=== PATIENT | female | born 1995 | race African-American/Black ===

== ENCOUNTER 2019-10-18 11:27 | Emergency (ER) | payer MEDICAID ==
[~2019-10-18] VITALS: Ht 165.1 cm; Wt 85.7 kg
[2019-10-18 12:59] LABS: Urine Bacteria NONE SEEN /hpf (None Seen); Urine Blood 1+ /uL (Negative); Urine Specific Gravity 1.026 (1.001-1.035); Urine WBC 4 /hpf (0 - 5)
[2019-10-18 13:40] LABS: Basophils # (auto) 0 uL; Basophils % (auto) 0.2 % (0.0-2.0); Eosinophils # (auto) 0.3 uL; Eosinophils % (auto) 2.1 % (0.0-7.0); Hematocrit 46.6 % (36.0-46.0); Hemoglobin 15.5 g/dL (12.2-16.2); Lymphocytes # (auto) 2.6 uL; Lymphocytes % (auto) 18.8 % (10.0-50.0); Mean Corpuscular Hemoglobin 32.5 pg (28.0-32.0); Mean Corpuscular Hgb Conc. 33.2 g/dL (32.0-36.0); Mean Corpuscular Volume 98.1 fL (80.0-100.0); Monocytes # (auto) 0.9 uL; Monocytes % (auto) 6.3 % (0.0-12.0); Neutrophils # (auto) 9.9 uL; Neutrophils % (auto) 72.6 % (37.0-80.0); Platelet Count (auto) 212 10^3/uL (140-450); Red Blood Cells 4.75 10^6/uL (4.0-5.20); Red Cell Distribution Width 13.2 % (11.8-14.3); White Blood Cell 13.7 10^3/uL (4.4-10.8)
[2019-10-18 14:02] LABS: Potassium 4.1 mmol/L (3.5-5.1)
[2019-10-18 14:08] LABS: Bilirubin, Total 0.3 mg/dL (0.2-1.0); Total Protein 7.5 g/dL (6.4-8.2)
[2019-10-18 15:32] VITALS: BP 116/69
== END 2019-10-18 15:31 | disposition home or self-care (01) ==
LOC: ER 11:27
DX: N39.0 Urinary tract infection, site not specified (principal); R10.2 Pelvic and perineal pain
CPT/HCPCS: 36415; 76856; 80053; 81001; 84702; 85025

== ENCOUNTER 2020-04-28 00:04 | Emergency (ER) | payer MEDICAID ==
[~2020-04-28] VITALS: Ht 165.1 cm; Wt 93.0 kg
[2020-04-28 01:29] LABS: Urine Amorphous Crystal FEW /hpf (None Seen); Urine Bacteria MOD /hpf (None Seen); Urine Blood 2+ /uL (Negative); Urine Mucus FEW (None Seen); Urine Specific Gravity 1.021 (1.001-1.035); Urine WBC 1 /hpf (0 - 5)
[2020-04-28 03:37] VITALS: BP 122/88
[2020-04-28] MEDS ORDERED: ACETAMINOPHEN 500 MG TAB PO ONE (04:00)
[2020-04-28] MEDS ORDERED: IBUPROFEN 800 MG TAB PO ONE (04:00)
== END 2020-04-28 04:53 | disposition home or self-care (01) ==
LOC: ER 00:04
DX: M54.5 Low back pain (principal); R11.0 Nausea; R10.2 Pelvic and perineal pain
CPT/HCPCS: 74176; 81001; 81025

== ENCOUNTER 2020-06-11 20:12 | Emergency (ER) | payer MEDICAID ==
[~2020-06-11] VITALS: Ht 165.1 cm; Wt 92.5 kg
[2020-06-11 21:22] LABS: Basophils # (auto) 0.1 10 ^3/uL (0-0.2); Basophils % (auto) 0.6 % (0.0-2.0); Eosinophils # (auto) 0.6 10 ^3/uL (0-0.8); Hematocrit 40.3 % (36.0-46.0); Hemoglobin 13.7 g/dL (12.2-16.2); Lymphocytes # (auto) 3.9 10 ^3/uL (0.4-5.4); Lymphocytes % (auto) 20.8 % (10.0-50.0); Mean Corpuscular Volume 97.1 fL (80.0-100.0); Monocytes # (auto) 1.5 10 ^3/uL (0-1.3); Monocytes % (auto) 7.7 % (0.0-12.0); Neutrophils # (auto) 12.8 10 ^3/uL (1.6-8.6); Neutrophils % (auto) 67.9 % (37.0-80.0); Platelet Count (auto) 278 10^3/uL (140-450); Red Blood Cells 4.15 10^6/uL (4.0-5.20); Red Cell Distribution Width 13.3 % (11.8-14.3); White Blood Cell 18.9 10^3/uL (4.4-10.8)
[2020-06-11 21:36] LABS: INR 0.94 (0.9-1.15); Partial Thromboplastin Time 24.5 sec (23.0-31.2)
[2020-06-11 21:38] LABS: Calcium 9.1 mg/dL (8.5-10.1); Potassium 3.7 mmol/L (3.5-5.1)
[2020-06-11 21:41] LABS: Bilirubin, Total 0.3 mg/dL (0.2-1.0); Total Protein 7.7 g/dL (6.4-8.2)
[2020-06-11 21:48] LABS: Urine Bacteria NONE SEEN /hpf (None Seen); Urine Blood 3+ /uL (Negative); Urine Mucus FEW (None Seen); Urine Specific Gravity 1.022 (1.001-1.035); Urine WBC 12 /hpf (0 - 5)
[2020-06-11 22:23] LABS: BUN/Creatinine Ratio 9.5
[2020-06-11 22:24] LABS: Alcohol, Urine < 3.0 mg/dL (0-10); Amphetamine Screen, Urine NEGATIVE (NEGATIVE); Barbiturate Scree,Urine NEGATIVE (NEGATIVE); Benzodiazephine Screen, Urine NEGATIVE (NEGATIVE); Cannabinoid Screen, Urine POSITIVE (NEGATIVE); Cocaine Screen, Urine NEGATIVE (NEGATIVE); Opiate Scree,Urine NEGATIVE (NEGATIVE); Phencyclidine Screen, Urine NEGATIVE (NEGATIVE)
[2020-06-11] MEDS ORDERED: cefTRIAXone SOD 1,000 MG VL IM ONE (22:30)
[2020-06-11 22:50] VITALS: BP 135/82
== END 2020-06-11 22:40 | disposition home or self-care (01) ==
LOC: ER 20:12
DX: N39.0 Urinary tract infection, site not specified (principal); F12.10 Cannabis abuse, uncomplicated; N93.9 Abnormal uterine and vaginal bleeding, unspecified; Z71.51 Drug abuse counseling and surveillance of drug abuser
CPT/HCPCS: 36415; 76856; 80053; 80307; 81001; 84702; 85025; 85610; 85730; 86850; 86900; 86901; 96372; 99284; J0696

== ENCOUNTER 2024-04-04 19:29 | Emergency (ER) | payer MEDICAID ==
[~2024-04-04] VITALS: Ht 165.1 cm; Wt 93.3 kg
[2024-04-04 19:55] VITALS: BP 130/77; PULSE 102; RESP 18; TEMP 99.4; O2SAT 96
[2024-04-04] MEDS ORDERED: ACET500T58 PO (20:42)
[2024-04-04] MEDS ORDERED: CEPH250C PO (20:42)
[2024-04-04] MEDS: CEPHALEXIN 250 MG CAP PO ONE (20:57)
== END 2024-04-04 21:00 | disposition home or self-care (01) ==
LOC: ER 19:29
DX: S61.211A Laceration without foreign body of left index finger without damage to nail, initial encounter (principal); S61.215A Laceration without foreign body of left ring finger without damage to nail, initial encounter; Z90.710 Acquired absence of both cervix and uterus; W26.0XXA Contact with knife, initial encounter; Y93.89 Activity, other specified; Y92.89 Other specified places as the place of occurrence of the external cause; Y99.8 Other external cause status
CPT/HCPCS: 12001